=== PATIENT | female | born 1955 | race Caucasian/White ===

== ENCOUNTER → 2017-09-17 | Outpatient (REF) | payer BC ==
[2017-09-17 14:07] LABS: BASO # 0.1 10^3/uL (0.0-0.2); BASO % 0.8 % (0.0-1.0); EOS % 0.2 % (0.0-3.0); HEMATOCRIT 43.2 % (36.0-47.0); HEMOGLOBIN 14.4 g/dl (12.0-16.0); IMMATURE GRANULOCYTE # 0.1 10^3/uL (0-0); IMMATURE GRANULOCYTE % 0.6 % (0-0); LYMPH # 1.9 10^3/uL (1.5-4.5); LYMPH % 22.7 % (24.0-44.0); MEAN CORPUSCULAR HEMOGLOBIN 31.8 pg (27.0-33.0); MEAN CORPUSCULAR HGB CONC 33.3 g/dl (32.0-36.5); MEAN CORPUSCULAR VOLUME 95.4 fl (80.0-96.0); MONO # 0.5 10^3/uL (0.0-0.8); NEUTROPHILS # 5.9 10^3/uL (1.8-7.7); NEUTROPHILS % 69.7 % (36.0-66.0); PLATELET COUNT, AUTOMATED 291 10^3/uL (150-450); RED BLOOD COUNT 4.53 10^6/uL (4.00-5.40); RED CELL DISTRIBUTION WIDTH 13.7 % (11.5-14.5); WHITE BLOOD COUNT 8.5 10^3/uL (4.0-10.0)
[2017-09-17 14:22] LABS: ALBUMIN 3.8 GM/DL (3.2-5.2); ALBUMIN/GLOBULIN RATIO 1.03 (1.00-1.93); ALKALINE PHOSPHATASE 100 U/L (45-117); ALT/SGPT 27 U/L (12-78); ANION GAP 7 MEQ/L (8-16); AST/SGOT 15 U/L (7-37); BILIRUBIN,TOTAL 0.4 MG/DL (0.2-1.0); BLOOD UREA NITROGEN 11 MG/DL (7-18); CALCIUM LEVEL 9.1 MG/DL (8.8-10.2); CARBON DIOXIDE LEVEL 25 MEQ/L (21-32); CHLORIDE LEVEL 108 MEQ/L (98-107); CREATININE FOR GFR 0.65 MG/DL (0.55-1.02); GLOMERULAR FILTRATION RATE > 60.0 (>45); GLUCOSE, FASTING 94 MG/DL (80-110); POTASSIUM SERUM 4.4 MEQ/L (3.5-5.1); RHEUMATOID FACTOR QUANT < 10.0 IU/ML (0-15.0); SODIUM LEVEL 140 MEQ/L (136-145); TOTAL PROTEIN 7.5 GM/DL (6.4-8.2)
[2017-09-17 14:26] LABS: VITAMIN B12 LEVEL 338 PG/ML
[2017-09-17 14:27] LABS: FOLATE 14.4 NG/ML
[2017-09-17 15:10] LABS: ERYTHROCYTE SEDIMENTATION RATE 35 mm/hr (0-30)
[2017-09-22 08:10] LABS: ANTI DOUBLE STRAND-DNA AB 1 IU/mL (0-9); ANTINUCLEAR ANTIBODIES DIRECT Negative (Negative); CERULOPLASMIN 27.4 mg/dL (19.0-39.0); COPPER PLASMA 111 ug/dL (72-166); Lyme Disease IgG/IgM Antibodie <0.91 ISR (0.00-0.90); Lyme Disease IgM Ab Quantitati <0.80 index (0.00-0.79); SJOGREN'S ANTI SS-A <0.2 AI (0.0-0.9); SJOGREN'S ANTI SS-B <0.2 AI (0.0-0.9)
== END ==
LOC: M LABNEURO 09:49
DX: G35 Multiple sclerosis (principal)
CPT/HCPCS: 82525

== ENCOUNTER → 2020-03-14 | Outpatient (CLI) | payer MEDICARE | LOC: M LABSMTC 13:27 | PROVIDERS: ATTEND Family Medicine | DX: Z11.59 Encounter for screening for other viral diseases (principal) | CPT/HCPCS: C9803; U0003 ==

== ENCOUNTER → 2020-11-20 | Outpatient (CLI) | payer MEDICARE ==
--- NOTE | 2020-11-20 16:02 | DEXAMM ---
INDICATION: M85.80 OTHER DISORDER OF BONE. COMPARISON: Comparison DEXA studies May 11, 2015, September 12, 2010, and July 28, 2002. TECHNIQUE: Bone density was measured using dual-energy x-ray absorptionmetry (DEXA). FINDINGS: AP SPINE L1-L4 BMD 1.217 g/cm2 Young Adult T-Score 0.2 Age Matched Z-Score 1.8. LT FEMUR, TOTAL BMD 1.131 g/cm2 Young Adult T-Score 1.0 Age Matched Z-Score 02.3. LT NECK BMD 0.991 g/cm2 Young Adult T-Score -0.3 Age Matched Z-Score 1.2. RT FEMUR, TOTAL BMD 1.128 g/cm2 Young Adult T-Score 1.0 Age Matched Z-Score 2.2. RT NECK BMD 0.968 g/cm2 Young Adult T-Score -0.5 Age Matched Z-Score 1.0. IMPRESSION: There is normal bone density of the spine. There is normal bone density of the left hip. There is normal bone density of the right hip. The density of the spine has decreased 10.5% since the initial exam on July 28, 2002. The density of the spine decreased 7.9% since most recent exam on May 11, 2015. The density of the left hip has decreased 7.3% since initial exam on July 28, 2002. The density of the left hip has decreased 4.1% since most recent exam on May 11, 2015. The density of the right hip has decreased 2.1% since the initial exam on July 28, 2002. The density of the right hip has decreased 0.1% since the most recent exam on May 11, 2015. FOLLOW-UP: Recommendation for the next bone density exam: 5 years. <Electronically signed by Fernando Barrera > 11/20/20 [id number]
== END ==
LOC: M WHC 15:15
PROVIDERS: ATTEND Family Medicine
DX: M85.80 Other specified disorders of bone density and structure, unspecified site (principal)

== ENCOUNTER → 2023-10-13 | Outpatient (CLI) | payer MEDICARE | LOC: M WHC 08:03 | PROVIDERS: ATTEND Family Medicine | DX: M81.0 Age-related osteoporosis without current pathological fracture (principal) ==

== ENCOUNTER → 2024-06-14 | Outpatient (REF) | payer MEDICARE | LOC: M SFHCDERM 16:03 | PROVIDERS: ATTEND Physician Assistant | DX: C44.719 Basal cell carcinoma of skin of left lower limb, including hip (principal) ==

== ENCOUNTER → 2024-07-05 | Outpatient (REF) | payer MEDICARE | LOC: M LAB REF 16:07 | PROVIDERS: ATTEND Surgery | DX: C44.711 Basal cell carcinoma of skin of unspecified lower limb, including hip (principal) ==

== ENCOUNTER → 2024-07-06 | Outpatient (REF) | payer MEDICARE | LOC: M SFHCDERM 09:51 | PROVIDERS: ATTEND Physician Assistant | DX: D23.39 Other benign neoplasm of skin of other parts of face (principal) ==

== ENCOUNTER → 2024-11-16 | Outpatient (CLI) | payer MEDICARE | LOC: M RAD 14:14 | PROVIDERS: ATTEND Internal Medicine Pulmonary Disease | DX: R06.02 Shortness of breath (principal); R91.8 Other nonspecific abnormal finding of lung field ==

== ENCOUNTER → 2024-11-24 | Outpatient (CLI) | payer MEDICARE ==
[2024-11-24 17:47] LABS: C REACTIVE PROTEIN QUANTITATIV 1.24 MG/DL (<1.0); RHEUMATOID FACTOR QUANT 23.5 IU/ML (<14)
[2024-11-28 11:53] LABS: RNP ANTIBODY <1.0 NEG AI (<1.0 NEG); SM ANTIBODY <1.0 NEG AI (<1.0 NEG); SSA SJOGRENS A <1.0 NEG AI (<1.0 NEG); SSB SJOGRENS B <1.0 NEG AI (<1.0 NEG)
[2024-11-28 15:47] LABS: ANA SCREEN, IFA NEGATIVE (NEGATIVE)
[2024-11-30 15:03] LABS: ANTI DS-DNA AB NEGATIVE (NEGATIVE)
[2024-12-02 00:52] LABS: ANCA SCREEN Negative (Negative)
== END ==
LOC: M LAB 16:31
PROVIDERS: ATTEND Internal Medicine Pulmonary Disease
DX: R91.8 Other nonspecific abnormal finding of lung field (principal)

== ENCOUNTER → 2025-06-19 | Outpatient (REF) | payer MEDICARE | LOC: M SFHCDERM 17:26 | PROVIDERS: ATTEND Physician Assistant | DX: L57.0 Actinic keratosis (principal) ==

== ENCOUNTER → 2025-08-31 | Outpatient (CLI) | payer MEDICARE | LOC: M RAD 13:22 | PROVIDERS: ATTEND Internal Medicine Pulmonary Disease | DX: R91.1 Solitary pulmonary nodule (principal) ==